=== PATIENT | female | born 1975 | race Caucasian/White ===

== ENCOUNTER 2019-04-28 15:13 | Emergency (ER) | payer BC ==
[~2019-04-28] VITALS: Ht 160 cm; Wt 77.3 kg
[2019-04-28 15:39] LABS: BASOPHILS # (AUTO) 0.1 X10'3 (0-0.2); BASOPHILS % (AUTO) 0.3 % (0-1); EOSINOPHILS # (AUTO) 0.2 X10'3 (0-0.9); EOSINOPHILS % (AUTO) 0.8 % (0-6); HEMOGLOBIN 12.8 g/dl (12.0-16.0); LYMPHOCYTES # (AUTO) 3.2 X10'3 (1.1-4.8); LYMPHOCYTES % (AUTO) 15.5 % (21-51); MEAN CORPUSCULAR HEMOGLOBIN 26.9 PG (27.0-31.0); MEAN CORPUSCULAR HGB CONC 32.9 g/dL (33.0-36.5); MEAN CORPUSCULAR VOLUME 81.8 FL (78-98); MEAN PLATELET VOLUME 8.6 FL (7.4-10.4); MONOCYTES % (AUTO) 4.9 % (2-12); NEUTROPHILS # (AUTO) 16.3 X10'3 (1.8-7.7); NEUTROPHILS % (AUTO) 78.5 % (42-75); PLATELET COUNT 422 X10'3 (140-440); RED BLOOD COUNT 4.77 X10'6 (4.20-5.60); WHITE BLOOD COUNT 20.7 X10'3 (4.5-11.0)
[2019-04-28 15:55] LABS: ALANINE AMINOTRANSFERASE 24 U/L (12-78); ALBUMIN/GLOBULIN RATIO 0.9 (1.1-1.5); ALKALINE PHOSPHATASE 69 IU/L (46-116); ANION GAP 15 (8-16); ASPARTATE AMINO TRANSFERASE 13 U/L (10-37); BILIRUBIN,TOTAL 0.3 MG/DL (0.1-1.0); BLOOD UREA NITROGEN 10 MG/DL (7-18); BUN/CREATININE RATIO 8.7 (6.6-38.0); CALCIUM 9.8 MG/DL (8.5-10.1); CHLORIDE 103 MMOL/L (99-107); CREATININE 1.15 MG/DL (0.40-0.90); GLUCOSE 156 MG/DL (70-104); POTASSIUM 3.8 MMOL/L (3.5-5.1); SODIUM 139 MMOL/L (135-145); TOTAL CARBON DIOXIDE 20.7 MMOL/L (24-32); TOTAL PROTEIN 8.5 G/DL (6.4-8.2); eGFR 51 ML/MIN
[2019-04-28] MEDS ORDERED: normal saline 1000ML IV soln IVB ONE (16:10)
[2019-04-28] MEDS ORDERED: proCHLORperazine 10 MG/2 ml inj IV ONE (16:10)
[2019-04-28] MEDS ORDERED: NALT50TA PO (16:13)
[2019-04-28] MEDS ORDERED: ESOM40CA PO (16:13)
[2019-04-28] MEDS ORDERED: ESCI20TA PO (16:13)
[2019-04-28 16:29] LABS: LIPASE 148 U/L (73-393)
[2019-04-28] MEDS ORDERED: iohexol 300mg/ml 100ml inj. ONE (16:30)
[2019-04-28] MEDS ORDERED: LORazepam 2 mg/ml vial IV ONE (16:35)
--- NOTE | 2019-04-28 17:04 | NUR ---
BREAKING THE ASSISGNED NURSE,PT CAME BACK FROM CT SCAN RESTING IN BED QUIETLY ,PT STATED THAT SHE IS FEELING BETTER ,REFUSED ATIVIAN AT THIS TIME ,PT SAID SHE WILL WAIT FOR ATIVIAN INJ,PT VITALS CHECKED HR 75,BP113/67.DENIES ANY CONCERN.IV FLUID INFUSING PER MD ORDERS.
[2019-04-28] MEDS ORDERED: normal saline 1000ML IV soln IV ONE (17:15)
[2019-04-28] MEDS ORDERED: CefTRIAXone 2gm/D5W 50ml 50 ML IV ONE (17:15)
--- NOTE | 2019-04-28 17:22 | NUR ---
pt assissted to restroom collected urine sample sent to the lab.pt assisgned nurse is back report given to her.
[2019-04-28 17:32] LABS: URINE HCG NEGATIVE (NEG)
[2019-04-28 17:36] LABS: COLOR,URINE YELLOW (Yellow); GLUCOSE, URINE NEGATIVE (Neg); KETONES,URINE >=80 mg/dl (Neg); LEUKOCYTE ESTERASE ,URINE NEGATIVE (Neg); NITRITES, URINE NEGATIVE (Neg); OCCULT BLOOD,URINE LARGE (Neg); PH,URINE >=9.0 (4.8-8.0); PROTEIN,URINE 30 mg/dl (Neg); UROBILINOGEN,URINE 0.2 E.U/dL (0.2-1.0)
[2019-04-28 17:39] LABS: URINE AMPHETAMINE SCREEN NEGATIVE (Neg); URINE BARBITUATE SCREEN NEGATIVE (Neg); URINE BENZODIAZEPINES SCREEN POSITIVE (Neg); URINE CANNABINOID SCREEN POSITIVE (Neg); URINE COCAINE SCREEN POSITIVE (Neg); URINE METHADONE SCREEN NEGATIVE (Neg); URINE OPIATE SCREEN NEGATIVE (Neg); URINE PHENCYCLIDINE SCREEN NEGATIVE (Neg)
[2019-04-28 17:42] LABS: UA COLLECTION TYPE CLN CATCH MIDSTREAM
[2019-04-28 17:43] LABS: CLARITY,URINE SLIGHTLY CLOUDY (Clear)
[2019-04-28 17:44] LABS: BACTERIA,URINE 1+ /HPF (Neg); RBC,URINE 20-50 /HPF (0-2); WBC,URINE 0-4 /HPF (0-4)
[2019-04-28 17:45] LABS: SQUAMOUS EPITHELIAL CELL,UR MANY /LPF (FEW)
[2019-04-28 18:34] VITALS: BP 103/47
[2019-04-28] MEDS ORDERED: ONDA4TAB6 PO (18:53)
== END 2019-04-28 19:09 | disposition home or self-care (01) ==
LOC: ER 15:13 → EDSEX 15:13 → ER 19:09
DX: K29.00 Acute gastritis without bleeding (principal); E86.0 Dehydration; E87.2 Acidosis; K21.9 Gastro-esophageal reflux disease without esophagitis; M19.90 Unspecified osteoarthritis, unspecified site; Z60.2 Problems related to living alone; Z88.8 Allergy status to other drugs, medicaments and biological substances; Z79.899 Other long term (current) drug therapy
CPT/HCPCS: 36415; 71045; 74177; 80053; 80305; 81001; 81025; 83605; 83690; 84145; 85025; 85610; 87040; 96361; 96365; 96375; 99284; J0696; J0780; J7030; Q9967

== ENCOUNTER 2021-12-25 13:56 | Emergency (ER) | payer BC ==
[~2021-12-25] VITALS: Ht 160 cm; Wt 70.5 kg
[~2021-12-25 13:56] MED LIST: ESCI20TA PO; ESOM40CA PO; NALT50TA PO; ONDA4TAB6 PO
[2021-12-25 14:00] VITALS: BP 128/82
[2021-12-25] MEDS ORDERED: AMOX-117 PO (15:10)
[2021-12-25] MEDS ORDERED: amox tr/potassium clavulanate 875/125mg TAB PO ONE (15:10)
[2021-12-25] MEDS ORDERED: bacitracin 15gm ointment TP ONE (15:10)
== END 2021-12-25 15:40 | disposition home or self-care (01) ==
LOC: ER 13:57
DX: S61.250A Open bite of right index finger without damage to nail, initial encounter (principal); K21.9 Gastro-esophageal reflux disease without esophagitis; Z88.5 Allergy status to narcotic agent; Z79.899 Other long term (current) drug therapy; W53.21XA Bitten by squirrel, initial encounter; Y93.89 Activity, other specified; Y92.89 Other specified places as the place of occurrence of the external cause; Y99.8 Other external cause status
CPT/HCPCS: 99283